=== PATIENT | female | born 1985 | race Caucasian/White ===

== ENCOUNTER → 2016-12-09 | Outpatient (CLI) | payer OTHER ==
--- NOTE | 2016-12-09 15:44 | CT ---
EXAMINATION TYPE: CT abdomen pelvis w con DATE OF EXAM: 12/09/2016 REFERENCE: NONE HISTORY: R10.84 Abdominal pain HISTORY: Patient complains of RLQ pain. REFERENCE: NONE CT DLP: 920.6 mGy Automated exposure control for dose reduction was used. TECHNIQUE: Helical acquisition through the abdomen and pelvis was obtained following the oral ingesti on of with Oral Contrast and following intravenous administration of 100 mL of Omnipaque 300. The sandra a was reformatted in axial, coronal and sagittal projections. FINDINGS: Visualized portions of the lungs are clear. There is no pleural or pericardial fluid. The heart is not enlarged. Within the abdomen, the liver is prominent measuring 19.3 cm. The spleen is enlarged measuring 13.4 c m. The gallbladder has been removed. Both adrenal glands are normal. Both kidneys demonstrate function and appear morphologically normal. The pancreas is normal. There is no significant retroperitoneal, iliac or inguinal adenopathy. There is an IUCD within the uterus. There is evidence of a recent follicular rupture in the left ovar y. Follicular change in the right ovary. The bladder is unremarkable. There is mucosal thickening involving the entire left side of the colon. The appendix is normal. Small bowel loops are normal. There is no free fluid and no free air. No osseous lesion is seen. IMPRESSION: 1. DIFFUSE MUCOSAL THICKENING INVOLVING THE LEFT SIDE OF THE COLON. PLEASE CORRELATE FOR COLITIS. 2. EVIDENCE OF RECENT FOLLICULAR RUPTURE INVOLVING THE LEFT OVARY. 3. MILD HEPATOSPLENOMEGALY.
== END | disposition home or self-care (01) ==
LOC: RADCTMAIN 13:19
PROVIDERS: ATTEND Family Medicine
DX: R16.2 Hepatomegaly with splenomegaly, not elsewhere classified (principal); K63.89 Other specified diseases of intestine
CPT/HCPCS: 74177; Q9967

== ENCOUNTER → 2016-12-28 | Outpatient (CLI) | payer OTHER ==
--- NOTE | 2016-12-28 08:55 | US ---
EXAMINATION TYPE: US abdomen complete DATE OF EXAM: 12/28/2016 COMPARISON: CT CLINICAL HISTORY: R76.8 abnormal labs,R10.84 abdominal pain. Pt states upset stomach, abnormal labs, abnormal CT EXAM MEASUREMENTS: Liver Length: 19.4 cm CBD: 0.4 cm Spleen: 13.5 cm Right Kidney: 12.9 x 4.0 x 5.3 cm Left Kidney: 11.4 x 5.8 x 5.4 cm Pancreas: wnl Liver: Enlarged, difficult to penetrate Gallbladder: Surgically absent Evidence for sonographic Guajardo's sign: No CBD: wnl Spleen: Enlarged Right Kidney: wnl Left Kidney: wnl Upper IVC: wnl Abd Aorta: wnl IMPRESSION: 1. Liver and spleen are enlarged and there is heterogeneous pattern of liver which can be seen with f atty infiltration, hepatocellular disease or hepatitis. Correlate clinically.
== END | disposition home or self-care (01) ==
LOC: RADUSWWP 08:16
PROVIDERS: ATTEND Family Medicine
DX: R16.2 Hepatomegaly with splenomegaly, not elsewhere classified (principal); R76.8 Other specified abnormal immunological findings in serum
CPT/HCPCS: 76700

== ENCOUNTER → 2017-03-31 | Outpatient (CLI) | payer BC ==
[2017-04-01 13:05] LABS: Cow's Milk IgE Class CLASS 0; Egg White IgE <0.35 kU/L (<0.35); Peanut IgE <0.35 kU/L (<0.35); Potato IgE <0.35 kU/L (<0.35); Potato IgE Class CLASS 0; Soybean IgE <0.35 kU/L (<0.35)
[2017-04-01 13:06] LABS: Alternaria alternata IgE <0.35 kU/L (<0.35); Asperg. fumagatus IgE <0.35 kU/L (<0.35); Asperg. fumagatus IgE Class CLASS 0; Aureo. pullulans IgE <0.35 kU/L (<0.35); Birch(Com.Silvr) IgE Class CLASS 0; Candida albicans IgE Class CLASS 0; Cat Epith & Dander IgE <0.35 kU/L (<0.35); Cat Epith & Dander IgE Class CLASS 0; Clad herbarum IgE <0.35 kU/L (<0.35); Clad herbarum IgE Class CLASS 0; Com. Pigweed IgE <0.35 kU/L (<0.35); Com. Pigweed IgE Class CLASS 0; Common Ragweed IgE Class CLASS 0; Dermato. Pteronyssinus Class CLASS 0; Dermato. Pteronyssinus IgE <0.35 kU/L (<0.35); Dermato. farinae IgE <0.35 kU/L (<0.35); Dermato. farinae IgE Class CLASS 0; English Plantain IgE Class CLASS 0; Epicoccum purpurascens Class CLASS 0; Epicoccum purpurascens IgE <0.35 kU/L (<0.35); Johnson Grass IgE Class CLASS 0; Lamb's Quarter IgE <0.35 kU/L (<0.35); Lamb's Quarter IgE Class CLASS 0; Maple (Box Elder) IgE <0.35 kU/L (<0.35); Maple (Box Elder) IgE Class CLASS 0; Mucor racemosus IgE <0.35 kU/L (<0.35); Mucor racemosus IgE Class CLASS 0; Oak IgE <0.35 kU/L (<0.35); Rhizopus nigricans IgE <0.35 kU/L (<0.35); Rhizopus nigricans IgE Class CLASS 0; S.rostrata/Helminth Class CLASS 0; S.rostrata/Helminth IgE <0.35 kU/L (<0.35); Sycamore(Mpl.Lf) IgE <0.35 kU/L (<0.35); Sycamore(Mpl.Lf) IgE Class CLASS 0; Timothy Grass IgE <0.35 kU/L (<0.35); Timothy Grass IgE Class CLASS 0; Walnut Tree IgE <0.35 kU/L (<0.35); White Ash IgE Class CLASS 0
== END | disposition home or self-care (01) ==
LOC: LABWHC1 12:12
PROVIDERS: ATTEND Otolaryngology
DX: J30.89 Other allergic rhinitis (principal)
CPT/HCPCS: 36415; 86003

== ENCOUNTER → 2018-09-23 | Outpatient (CLI) | payer BC ==
--- NOTE | 2018-09-23 09:14 | US ---
EXAMINATION TYPE: US thyroid st tissue head/neck DATE OF EXAM: 09/23/2018 COMPARISON: NONE CLINICAL HISTORY: E04.1 Thyroid Nodule. GLAND SIZE: Right Lobe: cm Overall Parenchyma: Left Lobe: cm Overall Parenchyma: Isthmus Thickness: cm NODULES RIGHT: # of nodules measured on right: 1. X x cm nodule at the pole with margins; . This nodule is and shows . Prior size: x x cm 2. X x cm nodule at the pole with margins; . This nodule is and shows . Prior size: x x cm 3. X x cm nodule at the pole with margins; . This nodule is and shows . Prior size: x x cm 4. X x cm nodule at the pole with margins; . This nodule is and shows . Prior size: x x cm LEFT: # of nodules measured on left: 1. X x cm nodule at the pole with margins; . This nodule is and shows . Prior size: x x cm 2. X x cm nodule at the pole with margins; . This nodule is and shows . Prior size: x x cm 3. X x cm nodule at the pole with margins; . This nodule is and shows . Prior size: x x cm 4. X x cm nodule at the pole with margins; . This nodule is and shows . Prior size: x x cm ISTHMUS: # of nodules measured in the isthmus: 1. X x cm nodule at the pole with margins; . This nodule is and shows . Prior size: x x cm Bilateral neck scanned, no evidence of lymphadenopathy. IMPRESSION: EXAMINATION TYPE: US thyroid st tissue head/neck DATE OF EXAM: 09/23/2018 COMPARISON: [place], [place] 2016 CLINICAL HISTORY: E04.1 Thyroid Nodule. Follow up thyroid nodules, patient also feels lump right neck . GLAND SIZE: Right Lobe: 4.7 x 1.7 x 1.7 cm Overall Parenchyma: heterogenous Left Lobe: 4.6 x 1.9 x 1.3 cm Overall Parenchyma: heterogeneous Isthmus Thickness: 0.3 cm NODULES RIGHT: # of nodules measured on right: 2 1. 2.1 X 1.4 x 0.9 cm hypoechoic mixed nodule at the mid pole with irregular margins; . This nodul e is wider than tall and shows intranodular vascularity. Prior size: 2.0 x 1.5 x 1.1 cm 2. 0.6 X 0.6 x 0.5 cm isoechoic mixed nodule at the mid/lower pole with well-defined margins; . Thi s nodule is wider than tall and shows no intranodular vascularity. Prior size: 0.8 x 0.7 x 0.7 cm LEFT: # of nodules measured on left: 3 1. 0.7 X 0.5 x 0.4 cm hypoechoic solid nodule at the mid pole with well-defined margins; . This no dule is wider than tall and shows no intranodular vascularity. Prior size: 0.7 x 0.6 x 0.4 cm 2. 0.5 X 0.4 x 0.3 cm hypoechoic solid nodule at the mid pole with irregular margins; . This nodul e is wider than tall and shows no intranodular vascularity. Prior size: 0.8 x 0.7 x 0.6 cm 3. 0.5 X 0.4 x 0.3 cm hypoechoic solid nodule at the lower pole with well-defined margins; . This n odule is wider than tall and shows no intranodular vascularity. Prior size: 0.5 x 0.4 x 0.3 cm ISTHMUS: # of nodules measured in the isthmus: 0 Bilateral neck scanned, 2 right sided areas seen at area of palpable lump. ? Lymph nodes: 1) 1.1 x 0.8 x 0.3 cm 2) 0.8 x 0.7 x 0.3 cm IMPRESSION: Stable nonspecific thyroid nodularity and heterogeneity.
== END ==
LOC: RADUSWWP 08:06
PROVIDERS: ATTEND Otolaryngology
DX: E04.1 Nontoxic single thyroid nodule (principal)
CPT/HCPCS: 76536

== ENCOUNTER → 2019-12-21 | Outpatient (CLI) | payer BC ==
--- NOTE | 2019-12-21 12:25 | XR ---
Cervical spine HISTORY: Pain 5 views of cervical spine There is loss of disc height at C5-6, cervical vertebral bodies show preserved height, alignment, bon e mineralization. Facet arthropathy changes are mild. There is some foraminal encroachment on the rig ht at C3-4, on the left at C5-6, C3-4. IMPRESSION: Degenerative disc disease.
== END | disposition home or self-care (01) ==
LOC: RADXRMAIN 11:01
PROVIDERS: ATTEND Family Medicine
DX: M50.30 Other cervical disc degeneration, unspecified cervical region (principal); R51 Headache
CPT/HCPCS: 72050

== ENCOUNTER → 2020-03-20 | Outpatient (CLI) | payer BC ==
[2020-03-20 08:49] VITALS: BP 143/94; PULSE 92; RESP 18; TEMP 98.3
--- NOTE | 2020-03-20 09:06 | P.PAINCN ---
History of Present Illness - Reason for Consult Consult date: 03/20/20 - History of Present Illness Roxie is a 34-year-old female presenting today as a new patient consult. She was seen by Dr. Thompson in his office had trigger point injections for her neck pain. She reports a trigger point injections not help very much. They helped very very temporarily. She continues to have pain which causes headaches. She has headaches about every day which lasts for few hours. She describes he adaches as a aching sensation which radio from the upper part of her neck into her head. She denies any visual or auditory changes with her headaches. She used to take Fioricet for the pain but is not taking any further. Recently her S practitioner that she sees at the doctor's office prescribe her tramadol and Tylenol seems to be helpful. She is interested in interventional procedures. She had some x-rays of the neck which showed degenerative disc disease. She also had a MRI of the cervical spine which showed some degeneration of the facet joints and mild disc bulging without any significant stenosis. Review of Systems Negative except as noted in the HPI Past Medical History Past Medical History: Asthma, Musculoskeletal Disorder Additional Past Medical History / Comment(s): allergy induced asthma, neck pain, headaches, currently taking antibiotics for infected tooth History of Any Multi-Drug Resistant Organisms: None Reported Past Surgical History: Section, Cholecystectomy Past Anesthesia/Blood Transfusion Reactions: Previous Problems w/ Anesthesia Additional Past Anesthesia/Blood Transfusion Reaction / Comm: slow to wake up Smoking Status: Current some day smoker Past Alcohol Use History: Occasional Past Drug Use History: None Reported Medications and Allergies Home Medications Medication Instructions Recorded Confirmed Type Cyclobenzaprine [Flexeril] 1 - 2 tab PO HS 10/13/18 03/20/20 History Montelukast [Singulair] 10 mg PO HS 10/13/18 03/20/20 History Desvenlafaxine Succinate [Pristiq] 50 mg PO DAILY 03/15/20 03/20/20 History Ibuprofen [Motrin] 800 mg PO Q8H PRN 03/15/20 03/20/20 History Loratadine [Claritin] 10 mg PO DAILY 03/15/20 03/20/20 History buPROPion XL [Wellbutrin Xl] 150 mg PO DAILY 03/15/20 03/20/20 History traMADol HCL [Ultram] 50 mg PO Q4-6H PRN 03/15/20 03/20/20 History Fluconazole [Diflucan] 03/20/20 History Allergies Allergy/AdvReac Type Severity Reaction Status Date / Time latex Allergy Rash/Hives Verified 03/15/20 14:46 Physical Exam Vitals: Vital Signs Temp Pulse Resp BP Pulse Ox 03/20/20 08:44 98.3 F 92 18 143/94 97 PHYSICAL EXAM: Constitutional: Awake and alert no distress Cardiovascular exam: Regular rate, no lower extremity edema, palpable pulses bilaterally Respiratory exam: No audible wheezing, no accessory muscle usage Abdominal exam: Soft nontender Muscular skeletal exam: - Cervical spine: Nontender to palpation bilaterally. Range of motion is preserved, there is some pain with extension and flexion of the cervical spine. Spurling is negative. Avendano's is negative. - Lumbar spine: Preserved lumbar lordosis. No changes in skin. Nontender palpation bilateral. Patient has full range of motion in flexion and extension as well as lateral sidebending. Straight leg raise is negative. Facet loading is negative. Nontender over the SI joints. PATRICK Negative, Gaenselons negative, SI Joint compression negative. Neuro exam: Normal sensation bilateral upper and lower extremities. Deep tendon reflexes are 2+ bilaterally. Avendano's is negative Psychiatric exam: Cooperative, good insight Assessment and Plan Assessment: #1 cervical spondylosis without myelopathy #2 cervicogenic headaches. Plan: After discussion with the patient examination the patient and review of medical records we have discussed that this may be because of her headaches. We discussed that cervical spondylosis may be responsible for her headaches and we should attempt cervical medial branch blocks versus facet joint injections. We will perform the injections with local anesthetic and cortisone at C2-C3, third occipital nerve as well. We'll do that bilaterally. We discussed the transient nature of these injections. We discussed repeated frequency ablation as a potential option if needed. PQRS Measure Charge Sheet Measure #130: Documentation of Current Meds in Medical Chart: Patient's medications documented in chart Measure #226: Tobacco Use: Screen & Cessation Intervention: Pt screened for tobacco use AND intervention given Measure #111: Pneumonia Vaccination: Pneumococcal vaccine administered or previously received Measure #47: Advance Care Plan: Advance care planning discussed & documented, plan or surrogate given Measure #412: Opioid Treatment Agreement: No documentation of signed opioid treatment agreement Measure #408: Opioid Therapy Follow-up Evaluation: Patient had NO f/u eval minimum every 3 months during opioid therapy Measure #317: Preventitive Care & Scrn High Bld Press & F/U: Normal blood pressure, f/u not required Measure #128: Body Mass Index (BMI) Screening & Follow-up: BMI documented ABOVE normal parameters - f/u documented Measure #131: Pain Assessment & Follow-up: Pain positive & plan documented Measure #431: Unhealthy Alcohol Use Preventative Care & Scrn: Patient not identi fied as an unhealthy alcohol user PQRS Narrative: Blood Pressure 143/94 Pain Intensity [Neck] 7 Scale Used Numeric (1 - 10) Hx Alcohol Use (MH) Yes Home Medications: Ambulatory Orders Cyclobenzaprine [Flexeril] 1 - 2 tab PO HS 10/13/18 Montelukast [Singulair] 10 mg PO HS 10/13/18 Desvenlafaxine Succinate [Pristiq] 50 mg PO DAILY 03/15/20 Ibuprofen [Motrin] 800 mg PO Q8H PRN 03/15/20 Loratadine [Claritin] 10 mg PO DAILY 03/15/20 buPROPion XL [Wellbutrin Xl] 150 mg PO DAILY 03/15/20 traMADol HCL [Ultram] 50 mg PO Q4-6H PRN 03/15/20 Fluconazole [Diflucan] 03/20/20
== END | disposition home or self-care (01) ==
LOC: PNWHC3 08:34
PROVIDERS: ATTEND Hospitalist
DX: M47.812 Spondylosis without myelopathy or radiculopathy, cervical region (principal); R51.9 Headache, unspecified; Z79.1 Long term (current) use of non-steroidal anti-inflammatories (NSAID); Z79.899 Other long term (current) drug therapy; Z79.2 Long term (current) use of antibiotics; Z72.89 Other problems related to lifestyle
CPT/HCPCS: 99211

== ENCOUNTER → 2020-04-25 | Outpatient (CLI) | payer BC ==
--- NOTE | 2020-04-25 12:00 | US ---
EXAMINATION TYPE: US thyroid st tissue head/neck DATE OF EXAM: 04/25/2020 COMPARISON: 09/23/2018 CLINICAL HISTORY: 34-year-old female E04.1 thyroid nodule. History of thyroid FNA TECHNIQUE: Multiple sonographic images of the thyroid gland are obtained. FINDINGS: GLAND SIZE: Right Lobe: 5.1 x 1.5 x 2.4 cm Overall Parenchyma: homogenous Left Lobe: 5.0 x 1.4 x 1.9 cm Overall Parenchyma: homogeneous Isthmus Thickness: 0.4 cm NODULES RIGHT: # of nodules measured on right: 2 1. 2.5 X 1.1 x 1.9 cm mixed cystic and solid, hypoechoic nodule at the mid pole, which is wider pascale n tall, with smooth margins, without echogenic foci. Prior size: 2.1 x 0.9 x 1.4 cm , slightly larger now 2. 1.7 X 1.0 x 1.0 cm mixed cystic and solid, hypoechoic nodule at the lower pole, which is wider t hendrix tall, with smooth margins, without echogenic foci. Prior size: 0.6 x 0.5 x 0.6 cm, increased in size. LEFT: # of nodules measured on left: multiple sub centimeter nodules seen with largest described bel ow 1. 0.7 X 0.4 x 0.5 cm mixed cystic and solid, hypoechoic nodule, which is wider than tall, with smo oth margins, without echogenic foci. Prior size: 0.7 x 0.4 x 0.5 cm, unchanged. ISTHMUS: # of nodules measured in the isthmus: 0 Bilateral neck scanned, no evidence of lymphadenopathy. IMPRESSION: 2 mixed solid and cystic nodules on the right at increased in size. At the mid pole, this measures 2. 5 x 1.9 cm (versus 2.1 x 1.4 cm). At the lower pole, this measures 1.7 x 1.0 cm (versus 6 x 6 mm, pre viously). FNA can be considered.
== END | disposition home or self-care (01) ==
LOC: RADUSWWP 09:45
PROVIDERS: ATTEND Otolaryngology
DX: E04.2 Nontoxic multinodular goiter (principal); Z98.890 Other specified postprocedural states
CPT/HCPCS: 76536

== ENCOUNTER 2020-04-26 08:53 | Day surgery (SDC) | payer BC ==
[2020-04-25 09:20] VITALS: BMI 31.7
[~2020-04-26 08:53] MED LIST: LACTATED RINGERS 1,000 ML IV SCH
[2020-04-26 09:10] VITALS: TEMP 98.1
[2020-04-26] MEDS ORDERED: DEXAMETHASONE SOD PHOSPHATE 10 MG/ML 1 ML VIAL ONE (09:34)
[2020-04-26] MEDS ORDERED: ROPIVACAINE 5MG/ML 20ML VIAL ONE (09:34)
[2020-04-26] MEDS ORDERED: MIDAZOLAM 2 MG/2 ML VIAL ONE (09:34)
--- NOTE | 2020-04-26 09:54 | P.PCN ---
Date of Procedure: 04/26/20 Surgeon: Mary Santana Pathology: none sent Condition: stable Disposition: PACU Description of Procedure: Pre and Postoperative diagnoses cervicogenic headache Name of procedure: Cervical medial branch block for C2 and C3 and block of the third occipital nerve bilaterally Surgeon:Mary Santana MD Anesthesia: IV moderate conscious sedation with 2 mg of Versed Description of procedure: The patient was seen and identified in the preoperative area. Risks, benefits, complications, and alternatives were discussed with the patient, the patient agreed to proceed with the procedure and signed the consent. IV was started. Vital signs remained stable throughout the procedure. Patient was taken to the OR and time out was completed. The patient was placed in the supine position on the procedure table. . The cervical area was prepped with chloraprep and draped in the usual sterile fashion. Critical pause was taken. Vital signs were closely monitored during the procedure. Conscious sedation was used during the procedure to decrease patients anxiety. The lateral view of fluoroscopy was used to identify the C2 and C3 trapezoid shaped cervical articular pillars and the target points were the center of the articular pillars . I used 25-gauge 3-1/2 inch Quincke spinal needle to go through the skin after localizing it with lidocaine 1% and to contact the bone at the above-mentioned target point then the AP view of fluoroscopy was used to verify needle position at the waist of the C2 and C3 vertebral bodies laterally. For the 3rd occipital nerve the target point was at the center of the C2-C3 j oint line bilaterally . after contacting bone at the target points mentioned above I injected 0.5 MLS of a solution made up off 3 ml of preservative-free Ropivacaine 0.5% mixed with Dexamethasone 10 mg and half ml of the mixture was injected at each level after negative aspiration for blood and CSF. [place] were then removed intact the same procedure was repeated on the left side. COMPLICATIONS: No acute complications. COMMENTS: A copy of needle placement was saved to the C-arm at the radiology department DISPOSITION / PLANS: The patient was placed in a supine position and transferred to the recovery area in a stable condition for observation and was discharged from the recovery room after meeting discharge criteria. Home discharge instructions given to the patient by the staff. The patient was reexamined prior to discharge. The patient will be scheduled for a repeat of this injection in 2- 4 weeks.
[2020-04-26] MEDS ORDERED: IV FLUID CONTINUATION 1,000 ML IV ONE (09:58)
[2020-04-26 10:03] VITALS: RESP 17
--- NOTE | 2020-04-26 10:10 | FL ---
EXAMINATION TYPE: FL guided pain mgmt statistic DATE OF EXAM: 04/26/2020 CLINICAL HISTORY: Neck pain. TECHNIQUE: Fluoroscopy. COMPARISON: None. FINDINGS: Fluoroscopic guidance was provided during pain relief procedure performed by Dr. Santana . A total of 15 seconds of fluoroscopic time was utilized during the procedure and 6 spot images are acquired. Images acquired shows needle localization at several levels in the cervical spine. IMPRESSION: As Above.
[2020-04-26 10:12] VITALS: BP 134/88; PULSE 88
== END 2020-04-26 10:30 | disposition home or self-care (01) ==
LOC: ORPAIN 08:53
PROVIDERS: ATTEND Anesthesiology
DX: M54.2 Cervicalgia (principal); R51.9 Headache, unspecified; Z88.5 Allergy status to narcotic agent; Z91.040 Latex allergy status
CPT/HCPCS: 81025; 64450; 64490; J2250; J1100; J2795; 99152

== ENCOUNTER 2020-05-08 08:42 | Day surgery (SDC) | payer BC ==
[2020-05-08 09:37] VITALS: RESP 16; TEMP 98.1
--- NOTE | 2020-05-08 10:28 | US ---
ULTRASOUND GUIDED FNA THYROID BIOPSY: CLINICAL HISTORY: Requested 2 right-sided thyroid nodules for FNA FINDINGS: The procedure was explained to the patient. The risks, complications, benefits and alternatives were discussed and any questions were answered. Informed consent was obtained. Patient was placed supin e on the ultrasound table and prepped and draped in the usual sterile fashion. Utilizing a 25 gauge needle, five passes were made into the 2 requested right thyroid nodules. Patient was stable throughout the procedure. Pathology is pending. All elements of maximal barrier technique were utilized. Note is made that the nodules at a significa nt cystic component which may lower diagnostic yield. IMPRESSION: 1. Successful ultrasound guided FNA thyroid biopsy.
[2020-05-08 10:33] VITALS: BP 119/71; PULSE 88
== END 2020-05-08 10:35 | disposition home or self-care (01) ==
LOC: RADPROMAIN 08:42
PROVIDERS: ATTEND Otolaryngology
DX: E04.2 Nontoxic multinodular goiter (principal)
CPT/HCPCS: 10005; 10006; 88173; 88305

== ENCOUNTER → 2020-10-31 | Outpatient (CLI) | payer BC ==
--- NOTE | 2020-10-31 09:22 | US ---
EXAMINATION TYPE: US thyroid st tissue head/neck DATE OF EXAM: 10/31/2020 COMPARISON: US 04/25/20, 09/23/18, [place] 05/22/16 CLINICAL HISTORY: E04.1 thyroid nodule. Follow up nodules. Patient on new thyroid med x 6 months GLAND SIZE: Right Lobe: 5.7 x 1.8 x 1.8 cm Overall Parenchyma: heterogenous Left Lobe: 5.3 x 1.9 x 1.6 cm Overall Parenchyma: heterogeneous Isthmus Thickness: 0.4 cm NODULES RIGHT: # of nodules measured on right: 2, multiple sub centimeter nodules seen with largest describ ed below 1. 1.6 X 1.1 x 0.9 cm, mid mid, solid or almost completely solid, hypoechoic nodule, which is wider than tall, with lobulated or irregular margins, with echogenic foci. Prior size: 2.5 x 101 x 1.9 cm 2. 1.8 X 1.1 x 1.0 cm, lower mid, mixed cystic and solid, isoechoic nodule, which is wider than kp l, with smooth margins, without echogenic foci. Biopsy of this lesion is recommended. Prior size: 1.7 x 1.0 x 1.0 cm LEFT: # of nodules measured on left: multiple sub centimeter nodules seen with largest described below 1. 0.8 X 0.7 x 0.5 cm, mid medial, mixed cystic and solid, isoechoic nodule, which is wider than ta ll, with smooth margins, without echogenic foci. Prior size: 0.7 x 0.4 x 0.5 cm ISTHMUS: # of nodules measured in the isthmus: 0 Bilateral neck scanned, no evidence of lymphadenopathy. IMPRESSION: Suspicious lobular hypoechoic nodule right lobe thyroid. Fine-needle aspiration recommended. 2017 ACR TI-RADS LEVEL: TR-RADS 4 - Moderately Suspicious: Follow if > 1 cm, FNA if > 1.5 cm *Highest TI-RADS level nodule reported
== END | disposition home or self-care (01) ==
LOC: RADUSWWP 08:28
PROVIDERS: ATTEND Otolaryngology
DX: E04.2 Nontoxic multinodular goiter (principal)
CPT/HCPCS: 76536

== ENCOUNTER → 2021-05-22 | Outpatient (CLI) | payer BC ==
--- NOTE | 2021-05-22 08:10 | US ---
EXAMINATION TYPE: US thyroid st tissue head/neck DATE OF EXAM: 05/22/2021 COMPARISON: NONE CLINICAL HISTORY: 35-year-old female E04.1 Thyroid nodule. Follow-up thyroid nodule. Patient's on syn throid TECHNIQUE: Multiple sonographic images of the thyroid gland are obtained. FINDINGS: GLAND SIZE: Right Lobe: 5.7 x 1.8 x 2.1 cm Overall Parenchyma: heterogenous Left Lobe: 5.1 x 1.7 x 1.9 cm Overall Parenchyma: heterogeneous Isthmus Thickness: 0.4 cm NODULES RIGHT: # of nodules measured on right: 2 - though there are multiple sub centimeter nodules seen 1. 1.5 X 1.3 x 1.0 cm, mid , solid, hypoechoic nodule, which is wider than tall, with lobulated or irregular margins, without echogenic foci. Prior size: 1.6 x 1.1 x 0.9 cm 2. 0.9 X 0.6 x 0.8 cm, lower , solid, hypoechoic nodule, which is wider than tall, with smooth nakita ins, without echogenic foci. Prior size: 1.8 x 1.1 x 1.0 cm LEFT: # of nodules measured on left: 1 - though there are multiple sub centimeter nodules seen 1. 0.9 X 0.6 x 0.6 cm, mid , mixed cystic and solid, hypoechoic nodule, which is wider than tall, w ith smooth margins, without echogenic foci. Prior size: 0.8 x 0.7 x 0.5 cm ISTHMUS: # of nodules measured in the isthmus: 0 Bilateral neck scanned, no evidence of lymphadenopathy. IMPRESSION: 1. Solid TR 4 nodule in the right midpole show some fluctuation in size, a millimeter smaller in one dimension and 1 to 2 mm larger in the other dimensions. Measuring up to 1.5 x 1.3 cm currently (versu s 1.6 x 1.1 cm, previously). 2. Multinodular goiter with multiple subcentimeter nodules again noted.
== END | disposition home or self-care (01) ==
LOC: RADUSWWP 06:54
PROVIDERS: ATTEND Otolaryngology
DX: E04.2 Nontoxic multinodular goiter (principal)
CPT/HCPCS: 76536

== ENCOUNTER → 2021-06-05 | Outpatient (CLI) | payer BC ==
[2021-06-05 19:34] LABS: T4, Free (Free Thyroxine) 1.36 ng/dL (0.800-1.800)
== END | disposition home or self-care (01) ==
LOC: LABWHC1 10:42
PROVIDERS: ATTEND Nurse Practitioner Family
DX: E06.9 Thyroiditis, unspecified (principal)
CPT/HCPCS: 36415; 84439; 84443; 84480

== ENCOUNTER → 2022-04-14 | Outpatient (CLI) | payer BC ==
--- NOTE | 2022-04-14 11:20 | CT ---
EXAMINATION TYPE: CT angio chest CT DLP: 399.2 mGycm, Automated exposure control for dose reduction was used. DATE OF EXAM: 04/14/2022 11:12 AM COMPARISON: None. CLINICAL INDICATION:Female, 36 years old with history of R06.02 SOB R07.1 CHEST PAIN ON BREATHING; ch est pain TECHNIQUE/CONTRAST: CTA scan of the thorax is performed with IV Contrast, patient injected with 60cc mL of Isovue 370, pu lmonary embolism protocol. MIP images are created and reviewed. FINDINGS: Pulmonary Artery: There is no evidence for a filling defect within the pulmonary vasculature to sugge st acute pulmonary embolism. The pulmonary artery is of normal size. Lungs/Pleura: No evidence of focal consolidation, pleural effusion or pneumothorax. Left lower lobe s ubsegmental atelectasis. 7 mm noncalcified right lower lobe pulmonary nodule (series 5, image 80). 3 mm nodule along the right major fissure favored to represent intrafissural lymph node (series 5, imag e 65). Airway: Large airways are patent. Heart: The heart is mildly enlarged for size.. No pericardial effusion. Vasculature: No evidence of aortic aneurysm. Mediastinum: No gross evidence of adenopathy. Musculoskeletal: No acute osseous abnormalities Soft Tissues: Unremarkable. Lower neck: No significant findings. Upper Abdomen: Spleen is enlarged measuring 14.7 cm in AP dimension. Postcholecystectomy. IMPRESSION: 1. No evidence of pulmonary embolism or acute thoracic process. 2. 7 mm right lower lobe pulmonary nodule. This is likely benign for patient's age. This can be follo wed up with CT chest in one year as clinically indicated. 3. Mild cardiomegaly. 4. Mild splenomegaly.
== END | disposition home or self-care (01) ==
LOC: RADCTMAIN 10:46
PROVIDERS: ATTEND Family Medicine
DX: R91.1 Solitary pulmonary nodule (principal); R16.1 Splenomegaly, not elsewhere classified; I51.7 Cardiomegaly; R07.1 Chest pain on breathing; R06.02 Shortness of breath
CPT/HCPCS: 71275; Q9967

== ENCOUNTER → 2022-06-02 | Outpatient (CLI) | payer BC ==
--- NOTE | 2022-06-02 10:58 | CA ---
Transthoracic Echo Report Name: Roxie Lindo Age: 36 Gender: F : 1985 Exam Date: 06/02/2022 08:18 Exam Location: [facility] Ht (in): 69 Wt (lb): 230 Ordering Physician: Tom Koehler DO Attending/Referring Phys: Lee Ann Lopez PAC Infusion Rn Darcy Gayle RDCS Procedure CPT: Indications: I51.7 Cardiomegaly Cardiac Hx: Technical Quality: Fair Contrast 1: Total Dose (mL): Contrast 2: Total Dose (mL): MEASUREMENTS (Male / Female) Normal Values 2D ECHO LV Diastolic Diameter PLAX 5.0 cm 4.2 - 5.9 / 3.9 - 5.3 cm LV Systolic Diameter PLAX 3.0 cm IVS Diastolic Thickness 1.3 cm 0.6 - 1.0 / 0.6 - 0.9 cm LVPW Diastolic Thickness 1.0 cm 0.6 - 1.0 / 0.6 - 0.9 cm LV Relative Wall Thickness 0.5 LA Volume 62.1 cm??? 18 - 58 / 22 - 52 cm??? M-MODE Aortic Root Diameter MM 2.5 cm LA Systolic Diameter MM 3.3 cm LA Ao Ratio MM 1.3 AV Cusp Separation MM 1.6 cm DOPPLER AV Peak Velocity 116.3 cm/s AV Peak Gradient 5.4 mmHg LVOT Peak Velocity 77.1 cm/s LVOT Peak Gradient 2.4 mmHg MV Area PHT 3.9 cm??? Mitral E Point Velocity 88.0 cm/s Mitral A Point Velocity 56.2 cm/s Mitral E to A Ratio 1.6 MV Deceleration Time 195.2 ms MV E' Velocity 8.7 cm/s Mitral E to MV E' Ratio 10.1 TR Peak Velocity 245.1 cm/s TR Peak Gradient 24.0 mmHg Right Ventricular Systolic Press 28.9 mmHg FINDINGS Left Ventricle Mildly increased septal wall thickness. Normal left ventricular systolic function with no obvious regional wall motion abnormalities. Left ventricular ejection fraction is estimated at 55-60 %. Right Ventricle Normal right ventricular size and function. Right ventricular systolic pressure within normal limits. Right Atrium Normal right atrial size. Left Atrium Mildly increased left atrial volume. Mildly increased left atrial area. Mitral Valve Structurally normal mitral valve. No mitral stenosis, regurgitation or prolapse. Aortic Valve No aortic valve stenosis or regurgitation. Tricuspid Valve Structurally normal tricuspid valve. Mild tricuspid regurgitation. Pulmonic Valve Trace pulmonic regurgitation. Pericardium No pericardial effusion. Aorta Normal size aortic root and proximal ascending aorta. CONCLUSIONS Normal LV size and systolic function with mild concentric LVH. Mild mitral and tricuspid insufficiency. No pericardial effusion Previewed by: Dr. Casper Still MD (Electronically Signed) Final Date: 02 June 2022 10:58
== END | disposition home or self-care (01) ==
LOC: RADECHMAIN 08:10
PROVIDERS: ATTEND Family Medicine
DX: I08.1 Rheumatic disorders of both mitral and tricuspid valves (principal)
CPT/HCPCS: 93306

== ENCOUNTER → 2022-06-15 | Outpatient (CLI) | payer BC ==
--- NOTE | 2022-06-15 09:52 | US ---
EXAMINATION TYPE: US thyroid st tissue head/neck DATE OF EXAM: 06/15/2022 COMPARISON: Thyroid ultrasound May 22, 2021 CLINICAL HISTORY: E04.1 THYROID NODULE. GLAND SIZE: Right Lobe: 5.5 x 1.8 x 1.8 cm Overall Parenchyma: homogenous Left Lobe: 5.4 x 1.5 x 2.0 cm Overall Parenchyma: homogeneous Isthmus Thickness: 0.3 cm NODULES RIGHT: # of nodules measured on right: 2 1. 1.4 X 0.8 x 0.9 cm, mid, solid or almost completely solid, hypoechoic nodule, which is wider pascale n tall, with smooth margins, without echogenic foci. Prior size: 1.5 x 1.3 x 1.0 cm 2. 0.9 X 0.64 x 0.9 cm, mid, cystic or almost completely cystic, anechoic nodule, which is wider th an tall, with smooth margins, without echogenic foci. Prior size: 0.9 x 0.6 x 0.8 cm LEFT: # of nodules measured on left: 1. 0.8 X 0.7 x 0.8 cm, mid, solid or almost completely solid, hypoechoic nodule, which is wider pascale n tall, with smooth margins, without echogenic foci. Prior size: 0.9 x 0.6 x 0.6 cm ISTHMUS: # of nodules measured in the isthmus: 0 Bilateral neck scanned, no evidence of lymphadenopathy. Normal-sized thyroid with bilateral nodules redemonstrated. IMPRESSION: As above. No significant new or enlarging nodules.
[2022-06-15 14:51] LABS: T4, Free (Free Thyroxine) 1.12 ng/dL (0.800-1.800)
== END | disposition home or self-care (01) ==
LOC: RADUSWWP 09:06
PROVIDERS: ATTEND Otolaryngology
DX: E04.2 Nontoxic multinodular goiter (principal)
CPT/HCPCS: 36415; 76536; 84439; 84443

== ENCOUNTER → 2023-04-05 | Outpatient (CLI) | payer BC ==
--- NOTE | 2023-04-05 09:29 | CT ---
EXAMINATION TYPE: CT chest wo con CT DLP: 354 mGycm, Automated exposure control for dose reduction was used. 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 Lack of IV or o ral contrast limits evaluation of solid and hollow organ viscera. . Coronal and sagittal reformats re viewed. FINDINGS: LUNGS/ PLEURA: No pleural effusion, pneumothorax, focal consolidation. Stable right lower lobe 7 mm p ulmonary nodule (series 4, image 31). Stable right lower lobe 3 mm pulmonary nodule (series 4, image 37). Additional 3 mm nodule along the right major fissure most consistent with an intrafissural lymph node. No new or enlarging pulmonary nodules. AIRWAY: Patent and unremarkable.. HEART: Mildly enlarged. No pericardial effusion. MEDIASTINUM: No gross evidence of adenopathy. VASCULATURE: No aortic aneurysm. MUSCULOSKELETAL: No acute osseous abnormalities SOFT TISSUES/LYMPH NODES: Unremarkable. LOWER NECK: No significant findings. UPPER ABDOMEN: Post cholecystectomy changes. Splenomegaly redemonstrated measuring up to 16.2 cm in A P dimension. IMPRESSION: 1. Stable 7 mm and 3 mm right lower lobe pulmonary nodules. No new or enlarging pulmonary nodules. T hese are likely benign for patient's age again. 2. Splenomegaly redemonstrated.
== END | disposition home or self-care (01) ==
LOC: RADCTMAIN 08:47
PROVIDERS: ATTEND Family Medicine
DX: R91.8 Other nonspecific abnormal finding of lung field (principal); R16.1 Splenomegaly, not elsewhere classified
CPT/HCPCS: 71250